=== PATIENT | male | born 1965 | race African-American/Black ===

== ENCOUNTER 2024-01-22 11:46 | Emergency (ER) | payer BC ==
[~2024-01-22] VITALS: Ht 177.8 cm; Wt 82.0 kg
[2024-01-22 11:52] VITALS: BP 143/82; TEMP 98.6; O2SAT 100
[2024-01-22 12:23] VITALS: PULSE 107; RESP 18; O2SAT 99
[2024-01-22] MEDS ORDERED: FLUT9.9S BOTHNSTRLS (14:26)
== END 2024-01-22 14:46 | disposition home or self-care (01) ==
LOC: ER 11:46
DX: U07.1 COVID-19 (principal); H65.92 Unspecified nonsuppurative otitis media, left ear; J44.9 Chronic obstructive pulmonary disease, unspecified; Z98.890 Other specified postprocedural states
CPT/HCPCS: 99282